=== PATIENT | male | born 1935 | race Caucasian/White ===

== ENCOUNTER → 2017-10-19 | Outpatient (CLI) | payer MEDICARE ==
[~2017-10-19] MED LIST: PROHANCE 279.3MG/ML 5ML VIAL (A9576) As Ordered
== END ==
LOC: M RAD 08:33
DX: R97.20 Elevated prostate specific antigen [PSA] (principal); K40.20 Bilateral inguinal hernia, without obstruction or gangrene, not specified as recurrent; N42.89 Other specified disorders of prostate
CPT/HCPCS: A9576

== ENCOUNTER → 2018-01-05 | Outpatient (CLI) | payer MEDICARE | LOC: M SMT PRO 09:17 | DX: R97.20 Elevated prostate specific antigen [PSA] (principal); C61 Malignant neoplasm of prostate (principal) | CPT/HCPCS: G0416 ==

== ENCOUNTER → 2018-01-28 | Outpatient (CLI) | payer MEDICARE | LOC: M ONCR 13:13 | DX: C61 Malignant neoplasm of prostate (principal) | CPT/HCPCS: G0463 ==

== ENCOUNTER → 2018-02-09 | Outpatient (CLI) | payer MEDICARE | LOC: M SMT 09:35 | DX: C61 Malignant neoplasm of prostate (principal) | CPT/HCPCS: 55876; 76872 ==

== ENCOUNTER 2018-02-23 09:25 | Outpatient (RCR) | payer MEDICARE | END 2018-03-13 | LOC: M ONCR 09:25 | DX: C61 Malignant neoplasm of prostate (principal) | CPT/HCPCS: 77334 ==

== ENCOUNTER 2018-03-15 10:05 | Outpatient (RCR) | payer MEDICARE | END 2018-04-13 | LOC: M ONCR 10:05 | DX: C61 Malignant neoplasm of prostate (principal) | CPT/HCPCS: 77300 ==

== ENCOUNTER 2018-04-14 09:32 | Outpatient (RCR) | payer MEDICARE | END 2018-05-14 | LOC: M ONCR 09:32 | DX: C61 Malignant neoplasm of prostate (principal) | CPT/HCPCS: 77336 ==

== ENCOUNTER 2018-05-18 13:01 | Outpatient (RCR) | payer MEDICARE | END 2018-06-13 | LOC: M ONCR 13:01 | DX: C61 Malignant neoplasm of prostate (principal) | CPT/HCPCS: 77386 ==

== ENCOUNTER → 2018-06-10 | Outpatient (CLI) | payer MEDICARE ==
[2018-06-10 12:31] LABS: PROSTATIC SPECIFIC AG MONITOR 0.02 NG/ML (< 4.0)
== END ==
LOC: M LAB 10:50
DX: C61 Malignant neoplasm of prostate (principal)
CPT/HCPCS: 84153

== ENCOUNTER → 2018-06-16 | Outpatient (CLI) | payer MEDICARE | LOC: M ONCR 10:11 | DX: C61 Malignant neoplasm of prostate (principal) | CPT/HCPCS: G0463 ==

== ENCOUNTER → 2018-12-15 | Outpatient (CLI) | payer MEDICARE ==
--- NOTE | 2018-12-15 16:17 | RADONC ---
RADIATION ONCOLOGY FOLLOWUP NOTE DATE: 12/15/2018 CHART NUMBER: [id number] DIAGNOSIS: Prostate cancer. STAGE: Stage III A, T2c, N0, M0, Helen score 7 (4-3), grade group 3, PSA 26.52. ECOG PERFORMANCE STATUS: 0 FOLLOWUP NOTE: Mr. Roach is a very pleasant, 83-year-old white male with the diagnosis of prostatic adenocarcinoma who is presenting to us today for routine followup visit 7 months post completion of external beam radiation therapy. The patient presents today reporting that he is doing quite well with no complaints at this time related to his radiation therapy or disease. He has no urinary or bowel difficulties. No bone pain. REVIEW OF SYSTEMS: The patient's review of systems is positive for physical limitations secondary to old age but is otherwise noncontributory. Denies nausea, vomiting, fevers, chills, night sweats, diplopia, headaches, anxiety or depression, anorexia, weight loss, visual disturbances, chest pain, urinary or bowel difficulties, bone pain, or neurological problems. PHYSICAL EXAMINATION: The patient is a well-developed, well-nourished male in no acute distress. HEENT exam is normocephalic, atraumatic. Extraocular movements are intact. There is no palpable cervical, supraclavicular, infraclavicular, axillary, or inguinal lymphadenopathy present. Lungs are clear to auscultation and percussion. Heart has a regular rate and rhythm. Abdomen is benign with no hepatosplenomegaly, masses, or tenderness. Rectal examination reveals a normal anal sphincter tone. His prostate is smooth with no evidence of nodularity. Skeletal examination reveals no tenderness to pressure or percussion of the bony skeleton. Extremities reveal no clubbing, cyanosis, or edema. Neurologic exam is grossly intact, as is the remainder of the physical examination. ASSESSMENT: The patient is clinically LEELEE at this time and will be seen by us again in 6 months for further followup. He will also continue be followed by his other physicians as well. cc: MD James Maddox MD
== END ==
LOC: M ONCR 09:36
PROVIDERS: ATTEND Radiology Radiation Oncology
DX: Z08 Encounter for follow-up examination after completed treatment for malignant neoplasm (principal); Z92.3 Personal history of irradiation; Z85.46 Personal history of malignant neoplasm of prostate

== ENCOUNTER 2019-07-05 13:33 | Inpatient (IN) | payer MEDICARE ==
[~2019-07-05] VITALS: Ht 177.8 cm; Wt 81.0 kg
[2019-07-05] MEDS ORDERED: METF-839 PO (14:07)
[2019-07-05] MEDS ORDERED: ALLO100T PO (14:07)
[2019-07-05] MEDS ORDERED: OMEGCAP4 PO (14:07)
[2019-07-05] MEDS ORDERED: LEVO137T2 PO (14:07)
[2019-07-05] MEDS ORDERED: ASPI81TA85 PO (14:07)
[2019-07-05] MEDS ORDERED: ATEN100T PO (14:07)
[2019-07-05] MEDS ORDERED: AMLO25TA PO (14:28)
[2019-07-05] MEDS ORDERED: PANT40TA3 PO (14:28)
[2019-07-05] MEDS ORDERED: JANU100T PO (14:28)
[2019-07-05] MEDS ORDERED: STAR120T3 PO (14:28)
[2019-07-05] MEDS ORDERED: SLO-500T PO (14:28)
[2019-07-05] MEDS ORDERED: SIMV40TA2 PO (14:28)
[2019-07-05] MEDS ORDERED: GLIM2TAB2 PO (14:28)
[2019-07-05] MEDS ORDERED: CALC600T60 PO (14:51)
[2019-07-05] MEDS ORDERED: REFR0.5D8 OU (14:51)
[2019-07-05 14:53] LABS: BASO % 0.3 % (0.0-1.0); EOS # 0.1 10^3/uL (0.0-0.5); EOS % 0.9 % (0.0-3.0); HEMATOCRIT 34.4 % (42.0-52.0); HEMOGLOBIN 11.5 g/dl (13.5-17.5); LYMPH # 1.4 10^3/uL (1.5-5.0); LYMPH % 13.4 % (24.0-44.0); MEAN CORPUSCULAR HEMOGLOBIN 32.5 pg (27.0-33.0); MEAN CORPUSCULAR HGB CONC 33.4 g/dl (32.0-36.5); MEAN CORPUSCULAR VOLUME 97.2 fl (80.0-96.0); MONO # 0.9 10^3/uL (0.0-0.8); MONO % 8.4 % (0.0-5.0); NEUTROPHILS # 8.1 10^3/uL (1.5-8.5); NEUTROPHILS % 76.5 % (36.0-66.0); PLATELET COUNT, AUTOMATED 204 10^3/uL (150-450); RED BLOOD COUNT 3.54 10^6/uL (4.30-6.10); WHITE BLOOD COUNT 10.5 10^3/uL (4.0-10.0)
[2019-07-05 15:18] LABS: ALBUMIN 3.5 GM/DL (3.2-5.2); BILIRUBIN,DIRECT 0.1 MG/DL (0.0-0.2); BILIRUBIN,TOTAL 0.4 MG/DL (0.2-1.0); CALCIUM LEVEL 9.9 MG/DL (8.8-10.2); CREATININE FOR GFR 1.69 MG/DL (0.70-1.30); GLOMERULAR FILTRATION RATE 41.5 (>35); POTASSIUM SERUM 4.1 MEQ/L (3.5-5.1); TOTAL PROTEIN 6.5 GM/DL (6.4-8.2)
--- NOTE | 2019-07-05 15:54 | REP ---
Single view chest: 07/05/2019. Indication: Chest pain. Comparison: 05/11/2009. Findings: The lungs are clear. There is no pleural effusion or pneumothorax. The cardiac silhouette is unremarkable. Proximal right humeral fracture is present. Please see dedicated reports for details. Impression: Clear lungs. Electronically Signed by Troy Johnson DO 07/05/2019 03:45 P
--- NOTE | 2019-07-05 16:01 | REP ---
Five views right shoulder/humerus: 07/05/2019. Indication: Shoulder trauma. Comparison: None. Findings: Comminuted displaced proximal right humeral fracture is present without shoulder joint subluxation/dislocation. The osseous structures are diffusely osteopenic. No erosive lesions are detected. Impression: Comminuted displaced proximal right humeral fracture. Electronically Signed by Troy Johnson DO 07/05/2019 03:53 P
--- NOTE | 2019-07-05 16:04 | REP ---
Please see report for accession number [id number] - [id number] as the reports were dictated together. Electronically Signed by Troy Johnson DO 07/05/2019 03:55 P
--- NOTE | 2019-07-05 16:56 | HPEPDOC ---
[facility] Medical History & Physical Date of Admission Jul 05, 2019 Date of Service: Jul 05, 2019 History and Physical CHIEF COMPLAINT: R. shoulder pain HISTORY OF PRESENT ILLNESS: Patient is 83M with PMH HTN, DM, Anxiety/Depression, Hypothyroidism, gout brought in by son into the ER as patient have not been able to ambulate at home due to weakness as well as R. shoulder pain. He reportedly has been week for weeks now and has been wheelchair bound and unable to take care of himself. His has been his primary skein bleacher but recently was hospitalized and he has been home alone without ability to move around and care for himself. He stated that he has had a fall about one month prior that resulted in pain and possible fracture and has been using a R. shoulder sling. Had went to [facility] multiple times. He current reports only weakness worse in his lower extremities and pain in the R. shoulder but otherwise offered no other complaints. PAST MEDICAL HISTORY: Refer to [facility] PAST SURGICAL HISTORY: Cholelcystectomy SOCIAL HISTORY: Denies tobacco, alcohol or illicit drug use. FAMILY HISTORY: parents had DM ALLERGIES: Please see below. REVIEW OF SYSTEMS: 10 point review of system negative except as stated in [facility] HOME MEDICATIONS: Please see below. PHYSICAL EXAMINATION: General: No acute distress, Alert, old/frail Eyes: Normal sclera, EOMI, DUSTY HENT: Atraumatic Cardiovascular: Normal rate, normal rhythm. Pulmonary: Clear to auscultation b/l, no wheezing GI: Soft, nontender, nondistended MSK: R. shoulder pain with reduced ROM 2/2 tenderness. Skin: Warm and dry Neuro: CN grossly intact. b/l LE weakness 2/5. Psych: oriented x 3 LABORATORY DATA: See below. IMAGING: XR R. shoulder and humerus- Findings: Comminuted displaced proximal right humeral fracture is present without shoulder joint subluxation/dislocation. The osseous structures are diffusely osteopenic. No erosive lesions are detected. Impression: Comminuted displaced proximal right humeral fracture. MICROBIOLOGY: Please see below. ASSESSMENT AND PLAN: 1. R. humeral fracture - Noted on XR. Has a sling in place, unsure why he hasn't had any intervention. - Will consult ortho for evaluation. - Pain control. 2. DM - Hold home oral glycemic agents. - ISS and Levemir. Monitor BS. 3. HTN - c/w home medications. 4. Hypothyroid - Resume home dose synthroid. 5. Physical debility - Chronic with progressive worsening. - Unable to get up for ambulate and self care. - PT/OT consult. Will likely require Rehab placement. Code status: Full code Dispo: PT eval and treatment, likely Rehab placement. Patient cared for by but is alone at the moment. Vital Signs Vital Signs Date Time Temp Pulse Resp B/P (MAP) Pulse Ox O2 Delivery O2 Flow Rate FiO2 07/05/19 16:18 81 97 Room Air 07/05/19 16:00 128/72 (90) 07/05/19 13:47 97.6 18 Laboratory Data Labs 24H Laboratory Tests 2 07/05/19 14:46: Immature Granulocyte % (Auto) 0.5, Neutrophils (%) (Auto) 76.5H, Lymphocytes (%) (Auto) 13.4L, Monocytes (%) (Auto) 8.4H, Eosinophils (%) (Auto) 0.9, Basophils (%) (Auto) 0.3, Neutrophils # (Auto) 8.1, Lymphocytes # (Auto) 1.4L, Monocytes # (Auto) 0.9H, Eosinophils # (Auto) 0.1, Basophils # (Auto) 0.0, Nucleated Red Blood Cells % (auto) 0.0, POC Glucose (Misc Panel) 197H, POC Sodium (Misc Panel) 138, POC Potassium (Misc Panel) 4.0, POC Chloride (Misc Panel) 105, POC Total CO2 (Misc Panel) 22.0L, POC Blood Urea Nitrogen (Misc Panel 36H, POC Ionized Calcium (Misc Panel) 5.2, POC Creatinine (Misc Panel) 1.8H, POC Hematocrit (Misc Panel) 32.0L, Anion Gap 8, Glomerular Filtration Rate 41.5, Calcium Level 9.9, Total Bilirubin 0.4, Direct Bilirubin 0.1, Aspartate Amino Transf (AST/SGOT) 13, Alanine Aminotransferase (ALT/SGPT) 18, Alkaline Phosphatase 92, Total Protein 6.5, Albumin 3.5, Albumin/Globulin Ratio 1.17 CBC/BMP Laboratory Tests 07/05/19 14:46 Home Medications Scheduled Allopurinol (Allopurinol) 100 Mg Tablet, 100 MG PO DAILY Amlodipine Besylate (Amlodipine Besylate) 2.5 Mg Tablet, 5 MG PO DAILY Aspirin (Aspir 81) 81 Mg Tablet.dr, 81 MG PO DAILY Atenolol (Atenolol) 100 Mg Tablet, 100 MG PO DAILY Calcium Carbonate (Calcium) 600 Mg Tablet, 600 MG PO DAILY Glimepiride (Glimepiride) 2 Mg Tablet, 2 MG PO BID Levothyroxine Sodium (Levothyroxine Sodium) 137 Mcg Tablet, 137 MCG PO DAILY Metformin HCl (Metformin HCl) 500 Mg Tablet, 500 MG PO BID Niacin (Slo-Niacin) 500 Mg Tablet.er, 500 MG PO DAILY Simvastatin (Simvastatin) 40 Mg Tablet, 40 MG PO DAILY Sitagliptin Phosphate (Januvia) 100 Mg Tablet, 100 MG PO DAILY Scheduled PRN Carboxymethylcellulose Sodium (Refresh Tears) 15 Ml Drops, 1 DROP OU TID PRN for DRY EYES Allergies Coded Allergies: No Known Allergies (Unverified , 07/05/19) A-FIB/CHADSVASC A-FIB History Current/History of A-Fib/PAF?: No ERIN BRADY MD Jul 05, 2019 16:56
[2019-07-05] MEDS ORDERED: DEXTROSE 50% 50 ML SYRINGE IV PRN (17:00)
[2019-07-05] MEDS ORDERED: GLUCAGON FOR INJ 1 MG VIAL (J1610) SC PRN (17:00)
[2019-07-05] MEDS ORDERED: GLUCOSE 4 GM CHEW TABLET PO PRN (17:00)
[2019-07-05] MEDS: HumaLOG INSULIN (NovoLOG) PER UNIT SC SCH ×2 (17:30→21:00)
[2019-07-05 19:06] VITALS: BP 147/77
[2019-07-05] MEDS ORDERED: LEVEMIR (INSULIN DETEMIR) 1 UNITS/0.01ML SC ONE (21:00)
[2019-07-05 22:00] VITALS: BP 143/78
[2019-07-06 05:27] VITALS: BP 160/76
[2019-07-06] MEDS: LEVOTHYROXINE 137MCG TABLET (0.137MG) PO SCH (06:20)
[2019-07-06] MEDS: HumaLOG INSULIN (NovoLOG) PER UNIT SC SCH ×4 (07:30→21:00)
[2019-07-06] MEDS ORDERED: GLIMEPIRIDE 2 MG TAB PO SCH (07:30)
[2019-07-06] MEDS ORDERED: metFORMIN (GLUCOPHAGE) 500 MG TAB PO SCH (08:00)
[2019-07-06] MEDS: ALLOPURINOL 100 MG TAB PO SCH (08:14)
[2019-07-06] MEDS: SIMVASTATIN 40 MG TAB PO SCH (08:14)
[2019-07-06] MEDS: ASPIRIN 81 MG ENTERIC TAB PO SCH (08:14)
[2019-07-06] MEDS: ATENOLOL 50 MG TAB PO SCH (08:17)
[2019-07-06 08:19] VITALS: BP 171/92
[2019-07-06] MEDS: ENOXAPARIN 30 MG/0.3 ML SYR (J1650) SC SCH (08:20)
[2019-07-06] MEDS: amLODIPine 5 MG TAB PO SCH (08:20)
[2019-07-06] MEDS ORDERED: SITagliptin 50 MG TAB (JANUVIA) PO SCH (09:00)
--- NOTE | 2019-07-06 12:34 | CR ---
DATE OF CONSULTATION: 07/06/2019 CONSULTATION FOR: Dr. Silva CHIEF COMPLAINT: Right shoulder pain. HISTORY: This is an 83-year-old gentleman who was brought to the emergency room yesterday with difficulty ambulating and right shoulder pain. Apparently, he has gotten somewhat progressively weaker. His had been his primary caregiver but was recently hospitalized. He did have a fall that he estimates was around 06/16/2019 into a wall that resulted in a right proximal humerus fracture. He was seen at [facility] apparently a couple of times, had an x-ray obtained. Denies having seen any orthopedic surgeon so far. He has been a sling, and he has been getting more comfortable with it but does have some discomfort. He had a significant amount of bruising, he relates, but that is resolved. PAST MEDICAL HISTORY: Is notable for hypothyroidism, depression, anxiety, hypertension, diabetes, gout. PAST SURGICAL HISTORY: Includes cholecystectomy. SOCIAL HISTORY: Denies any tobacco or alcohol use currently. FAMILY HISTORY: Notable for diabetes. PHYSICAL EXAMINATION: He is alert, oriented, cooperative, no acute distress. HEENT: Extraocular muscles intact. He has a benign pharynx. He has regular rate and rhythm to his pulse. Nonlabored breathing. Benign abdomen. His right shoulder demonstrates some diffuse tenderness. There is some perhaps very mild swelling of his shoulder. He has irritability to range of motion of the shoulder with flexion and forward elevation of about 20 degrees or so, abduction about 10 degrees. His elbow range of motion seems full. He has good pulses distally and intact sensation distally. Radiographs reviewed of his right humerus and shoulder done yesterday here, and they demonstrate a proximal humerus fracture. There is some degree of displacement. Probably some early signs of healing. There is no evidence of obvious dislocation, and it was interpreted as having no dislocation. He has evidence of rotator cuff arthropathy with a high riding humeral head. Overall position alignment of the fracture, I think, is very acceptable. IMPRESSION: Right proximal humerus fracture with some signs of early healing. RECOMMENDATION: Sling. He can work on range of motion of his elbow. I would recommend nonweightbearing on his right upper extremity and would recommend followup in 2 weeks in the orthopedic office. He should get an updated x-ray at that point. If there are any issues in the meantime, please contact us.
[2019-07-06] MEDS: PERCOCET 5MG/325MG TAB PO PRN (13:36)
[2019-07-06 14:00] VITALS: BP_SYST 112; BP_SYST 147; BP_DIAS 68; BP_DIAS 88
--- NOTE | 2019-07-06 17:24 | IPNPDOC ---
Date Seen The patient was seen on 07/06/19. Progress Note SUBJECTIVE: Patient reported intermittent R. shoulder pain but otherwise no changes in condition. Afebrile overnight. No acute events reported. OBJECTIVE PHYSICAL EXAMINATION: VITAL SIGNS: Please see below. General: No acute distress, Alert Eyes: Normal sclera, EOMI, DUSTY HENT: Atraumatic Cardiovascular: Normal rate, normal rhythm. Pulmonary: Clear to auscultation b/l, no wheezing GI: Soft, nontender, nondistended MSK: R. shoulder pain with reduced ROM 2/2 tenderness. Skin: Warm and dry Neuro: CN grossly intact. b/l LE weakness 2/5. Psych: oriented x 3 LABORATORY DATA, IMAGING STUDIES, MICROBIOLOGY: Please see below. IMAGING: XR R. shoulder and humerus- Findings: Comminuted displaced proximal right humeral fracture is present without shoulder joint subluxation/dislocation. The osseous structures are diffusely osteopenic. No erosive lesions are detected. Impression: Comminuted displaced proximal right humeral fracture. MICROBIOLOGY: Please see below. ASSESSMENT AND PLAN: 1. R. humeral fracture - Noted on XR. Has a sling in place. - Evaluated by ortho. to continue sling and f/u in 2 weeks. - Pain control. 2. DM - Hold home oral glycemic agents. - ISS. Monitor BS. Start Levemir if consistently elevated, was given 10 units previously with AM BS at 80. 3. HTN - c/w home medications. 4. Hypothyroid - Resume home dose synthroid. 5. Physical debility - Chronic with progressive worsening. - Unable to get up for ambulate and self care. - PT/OT consult. Will likely require Rehab placement. Code status: Full code Dispo: PT eval and treatment, likely Rehab placement. Patient cared for by but is alone at the moment. VS, I&O, 24H, Fishbone Vital Signs/I&O Vital Signs Date Time Temp Pulse Resp B/P (MAP) Pulse Ox O2 Delivery O2 Flow Rate FiO2 07/06/19 14:00 97.6 76 19 147/88 (107) 93 Room Air I&O- Last 24 Hours up to 6 AM 07/06/19 05:59 Intake Total 350 ml Output Total 300 ml Balance 50 ml Laboratory Data 24H LABS Laboratory Tests 2 07/05/19 20:45: Bedside Glucose (Misc Panel) 152H 07/06/19 06:00: Bedside Glucose (Misc Panel) 84 07/06/19 11:35: Bedside Glucose (Misc Panel) 219H ERIN BRADY MD Jul 06, 2019 17:24
[2019-07-06 22:15] VITALS: BP 144/82
[2019-07-07 05:55] LABS: HEMATOCRIT 32.8 % (42.0-52.0); MEAN CORPUSCULAR HEMOGLOBIN 32.4 pg (27.0-33.0); MEAN CORPUSCULAR HGB CONC 33.5 g/dl (32.0-36.5); MEAN CORPUSCULAR VOLUME 96.5 fl (80.0-96.0); PLATELET COUNT, AUTOMATED 161 10^3/uL (150-450); WHITE BLOOD COUNT 7.4 10^3/uL (4.0-10.0)
[2019-07-07 06:13] LABS: CALCIUM LEVEL 9.3 MG/DL (8.8-10.2); CREATININE FOR GFR 1.43 MG/DL (0.70-1.30); GLOMERULAR FILTRATION RATE 50.3 (>35); POTASSIUM SERUM 3.9 MEQ/L (3.5-5.1)
[2019-07-07] MEDS: LEVOTHYROXINE 137MCG TABLET (0.137MG) PO SCH (06:30)
[2019-07-07] MEDS ORDERED: FLUBLOK(EGG FREE)(QUAD)INFLUENZA VACC 0.5ML SYRINGE (90682)18YRS&OLDER IM ONE (09:00)
[2019-07-07] MEDS: ALLOPURINOL 100 MG TAB PO SCH (09:40)
[2019-07-07] MEDS: SIMVASTATIN 40 MG TAB PO SCH (09:40)
[2019-07-07] MEDS: ASPIRIN 81 MG ENTERIC TAB PO SCH (09:40)
[2019-07-07] MEDS: ATENOLOL 50 MG TAB PO SCH (09:40)
[2019-07-07] MEDS: HumaLOG INSULIN (NovoLOG) PER UNIT SC SCH ×4 (09:41→20:12)
[2019-07-07] MEDS: amLODIPine 5 MG TAB PO SCH (09:41)
[2019-07-07] MEDS: ENOXAPARIN 30 MG/0.3 ML SYR (J1650) SC SCH (09:41)
[2019-07-07] MEDS: ACETAMINOPHEN TAB 650MG DOSE (2X325MG) PO PRN (13:00)
[2019-07-07 14:22] VITALS: BP 130/67
--- NOTE | 2019-07-07 17:42 | IPNPDOC ---
Date Seen The patient was seen on 07/07/19. Progress Note SUBJECTIVE: Patient reports feeling fine and has been working well with PT. No acute events reported. R. shoulder pain improve with analgesia. OBJECTIVE PHYSICAL EXAMINATION: VITAL SIGNS: Please see below. General: No acute distress, Alert Eyes: Normal sclera, EOMI, DUSTY HENT: Atraumatic Cardiovascular: Normal rate, normal rhythm. Pulmonary: Clear to auscultation b/l, no wheezing GI: Soft, nontender, nondistended MSK: R. shoulder pain with reduced ROM 2/2 tenderness. Skin: Warm and dry Neuro: CN grossly intact. b/l LE weakness 2/5. Psych: oriented x 3 LABORATORY DATA, IMAGING STUDIES, MICROBIOLOGY: Please see below. IMAGING: XR R. shoulder and humerus- Findings: Comminuted displaced proximal right humeral fracture is present without shoulder joint subluxation/dislocation. The osseous structures are diffusely osteopenic. No erosive lesions are detected. Impression: Comminuted displaced proximal right humeral fracture. MICROBIOLOGY: Please see below. ASSESSMENT AND PLAN: 1. R. humeral fracture - Noted on XR. Has a sling in place. - Evaluated by ortho. to continue sling and f/u in 2 weeks. - Pain control. 2. DM - Hold home oral glycemic agents. - ISS. Monitor BS. Start Levemir if consistently elevated, was given 10 units previously with AM BS at 80. - Appear that sliding scale coverage is enough at this time. 3. HTN - c/w home medications. 4. Hypothyroid - Resume home dose synthroid. 5. Physical debility - Chronic with progressive worsening. - Unable to get up for ambulate and self care. - PT/OT. Will likely require Rehab placement. Code status: Full code Dispo: PT eval and treatment, likely Rehab placement. VS, I&O, 24H, Fishbone Vital Signs/I&O Vital Signs Date Time Temp Pulse Resp B/P (MAP) Pulse Ox O2 Delivery O2 Flow Rate FiO2 07/07/19 14:22 97.1 58 20 130/67 (88) 97 Room Air I&O- Last 24 Hours up to 6 AM 07/07/19 06:00 Intake Total 1480 ml Output Total 0 ml Balance 1480 ml Laboratory Data 24H LABS Laboratory Tests 2 07/06/19 21:48: Bedside Glucose (Misc Panel) 186H 07/07/19 05:39: Nucleated Red Blood Cells % (auto) 0.0, Anion Gap 10, Glomerular Filtration Rate 50.3, Calcium Level 9.3 07/07/19 11:39: Bedside Glucose (Misc Panel) 173H 07/07/19 16:53: Bedside Glucose (Misc Panel) 123H CBC/BMP Laboratory Tests 07/07/19 05:39 ERIN BRADY MD Jul 07, 2019 17:42
[2019-07-07 22:00] VITALS: BP 133/63
[2019-07-07] MEDS: PERCOCET 5MG/325MG TAB PO PRN (22:33)
[2019-07-08 06:00] VITALS: BP 153/67
[2019-07-08] MEDS: LEVOTHYROXINE 137MCG TABLET (0.137MG) PO SCH (06:27)
[2019-07-08 06:37] LABS: HEMATOCRIT 31.7 % (42.0-52.0); HEMOGLOBIN 10.4 g/dl (13.5-17.5); MEAN CORPUSCULAR HEMOGLOBIN 31.8 pg (27.0-33.0); MEAN CORPUSCULAR HGB CONC 32.8 g/dl (32.0-36.5); MEAN CORPUSCULAR VOLUME 96.9 fl (80.0-96.0); PLATELET COUNT, AUTOMATED 178 10^3/uL (150-450); RED BLOOD COUNT 3.27 10^6/uL (4.30-6.10)
[2019-07-08] MEDS: PERCOCET 5MG/325MG TAB PO PRN ×2 (06:47→16:56)
[2019-07-08 06:58] LABS: CALCIUM LEVEL 9.4 MG/DL (8.8-10.2); CREATININE FOR GFR 1.48 MG/DL (0.70-1.30); GLOMERULAR FILTRATION RATE 48.3 (>35); POTASSIUM SERUM 4.2 MEQ/L (3.5-5.1)
[2019-07-08] MEDS: HumaLOG INSULIN (NovoLOG) PER UNIT SC SCH ×4 (07:30→20:53)
[2019-07-08] MEDS: ASPIRIN 81 MG ENTERIC TAB PO SCH (09:07)
[2019-07-08] MEDS: ATENOLOL 50 MG TAB PO SCH (09:08)
[2019-07-08] MEDS: SIMVASTATIN 40 MG TAB PO SCH (09:08)
[2019-07-08] MEDS: amLODIPine 5 MG TAB PO SCH (09:08)
[2019-07-08] MEDS: ALLOPURINOL 100 MG TAB PO SCH (09:08)
[2019-07-08] MEDS: ENOXAPARIN 30 MG/0.3 ML SYR (J1650) SC SCH (09:09)
[2019-07-08] MEDS: NS 1,000 ML IV SCH ×2 (09:09→17:13)
--- NOTE | 2019-07-08 13:28 | IPNPDOC ---
Date Seen The patient was seen on 07/08/19. Progress Note SUBJECTIVE: Patient has no complaints, comfortable. R. shoulder pain improved with medication. OBJECTIVE PHYSICAL EXAMINATION: VITAL SIGNS: Please see below. General: No acute distress, Alert Eyes: Normal sclera, EOMI, DUSTY HENT: Atraumatic Cardiovascular: Normal rate, normal rhythm. Pulmonary: Clear to auscultation b/l, no wheezing GI: Soft, nontender, nondistended MSK: R. shoulder pain with reduced ROM 2/2 tenderness. Skin: Warm and dry Neuro: CN grossly intact. b/l LE weakness 2/5. Psych: oriented x 3 LABORATORY DATA, IMAGING STUDIES, MICROBIOLOGY: Please see below. IMAGING: XR R. shoulder and humerus- Findings: Comminuted displaced proximal right humeral fracture is present without shoulder joint subluxation/dislocation. The osseous structures are diffusely osteopenic. No erosive lesions are detected. Impression: Comminuted displaced proximal right humeral fracture. MICROBIOLOGY: Please see below. ASSESSMENT AND PLAN: 1. R. humeral fracture - Noted on XR. Has a sling in place. - Evaluated by ortho. to continue sling and f/u in 2 weeks. - Pain control. 2. DM - Hold home oral glycemic agents. - ISS. Monitor BS. Start Levemir if consistently elevated, was given 10 units previously with AM BS at 80. - Appear that sliding scale coverage is enough at this time. 3. HTN - c/w home medications. 4. Hypothyroid - Resume home dose synthroid. 5. Physical debility - Chronic with progressive worsening. - Unable to get up for ambulate and self care. - PT/OT. Will require Rehab placement. Code status: Full code Dispo: PT eval and treatment, Rehab placement. [facility] Vital Signs Date Time Temp Pulse Resp B/P (MAP) Pulse Ox O2 Delivery O2 Flow Rate FiO2 07/08/19 09:08 57 153/67 07/08/19 07:17 18 Room Air 07/08/19 06:00 98.3 98 I&O- Last 24 Hours up to 6 AM 07/08/19 06:00 Intake Total 1380 ml Output Total 925 ml Balance 455 ml Laboratory Data 24H LABS Laboratory Tests 2 07/07/19 16:53: Bedside Glucose (Misc Panel) 123H 07/07/19 20:07: Bedside Glucose (Misc Panel) 188H 07/08/19 05:27: Nucleated Red Blood Cells % (auto) 0.0, Anion Gap 7L, Glomerular Filtration Rate 48.3, Calcium Level 9.4 07/08/19 12:47: Bedside Glucose (Misc Panel) 158H CBC/BMP Laboratory Tests 07/08/19 05:27 ERIN BRADY MD Jul 08, 2019 13:28
[2019-07-08 16:02] VITALS: BP 128/63
[2019-07-08 22:00] VITALS: BP 123/61
[2019-07-09] MEDS: PERCOCET 5MG/325MG TAB PO PRN ×3 (02:23→15:05)
[2019-07-09] MEDS: NS 1,000 ML IV SCH ×2 (04:00→14:57)
[2019-07-09] MEDS: LEVOTHYROXINE 137MCG TABLET (0.137MG) PO SCH (05:35)
[2019-07-09 06:00] VITALS: BP 162/74
[2019-07-09 07:02] LABS: HEMATOCRIT 31.8 % (42.0-52.0); HEMOGLOBIN 10.4 g/dl (13.5-17.5); MEAN CORPUSCULAR HEMOGLOBIN 32.1 pg (27.0-33.0); MEAN CORPUSCULAR HGB CONC 32.7 g/dl (32.0-36.5); MEAN CORPUSCULAR VOLUME 98.1 fl (80.0-96.0); PLATELET COUNT, AUTOMATED 176 10^3/uL (150-450); RED BLOOD COUNT 3.24 10^6/uL (4.30-6.10); WHITE BLOOD COUNT 7.9 10^3/uL (4.0-10.0)
[2019-07-09 07:11] LABS: CALCIUM LEVEL 8.7 MG/DL (8.8-10.2); CREATININE FOR GFR 1.38 MG/DL (0.70-1.30); GLOMERULAR FILTRATION RATE 52.4 (>35); POTASSIUM SERUM 4.1 MEQ/L (3.5-5.1)
[2019-07-09] MEDS: SIMVASTATIN 40 MG TAB PO SCH (08:36)
[2019-07-09] MEDS: ATENOLOL 50 MG TAB PO SCH (08:37)
[2019-07-09] MEDS: amLODIPine 5 MG TAB PO SCH (08:37)
[2019-07-09] MEDS: ASPIRIN 81 MG ENTERIC TAB PO SCH (08:37)
[2019-07-09] MEDS: ALLOPURINOL 100 MG TAB PO SCH (08:37)
[2019-07-09] MEDS: HumaLOG INSULIN (NovoLOG) PER UNIT SC SCH ×4 (08:38→20:27)
[2019-07-09] MEDS: ENOXAPARIN 30 MG/0.3 ML SYR (J1650) SC SCH (08:38)
--- NOTE | 2019-07-09 12:18 | IPNPDOC ---
Date Seen The patient was seen on 07/09/19. Progress Note SUBJECTIVE: Patient states that his shoulder has not been hurting very much as has no co mplailnts. No acute events reported overnight. OBJECTIVE PHYSICAL EXAMINATION: VITAL SIGNS: Please see below. General: No acute distress, Alert Eyes: Normal sclera, EOMI, DUSTY HENT: Atraumatic Cardiovascular: Normal rate, normal rhythm. Pulmonary: Clear to auscultation b/l, no wheezing GI: Soft, nontender, nondistended MSK: R. shoulder pain with movement. Reduced ROM 2/2 tenderness. Skin: Warm and dry Neuro: CN grossly intact. b/l LE weakness 2/5. Psych: oriented x 3 LABORATORY DATA, IMAGING STUDIES, MICROBIOLOGY: Please see below. IMAGING: XR R. shoulder and humerus- Findings: Comminuted displaced proximal right humeral fracture is present without shoulder joint subluxation/dislocation. The osseous structures are diffusely osteopenic. No erosive lesions are detected. Impression: Comminuted displaced proximal right humeral fracture. MICROBIOLOGY: Please see below. ASSESSMENT AND PLAN: 1. R. humeral fracture - Noted on XR. Has a sling in place. - Evaluated by ortho. to continue sling and f/u in 2 weeks. - Pain control. 2. DM - Hold home oral glycemic agents. - ISS. Monitor BS. Start Levemir if consistently elevated, was given 10 units previously with AM BS at 80. - Appear that sliding scale coverage is enough at this time. 3. HTN - c/w home medications. 4. Hypothyroid - Resume home dose synthroid. 5. Physical debility - Chronic with progressive worsening. - Unable to get up for ambulate and self care. - PT/OT. Will require Rehab placement. Code status: Full code Dispo: PT eval and treatment, Rehab placement. VS, I&O, 24H, Fishbone Vital Signs/I&O Vital Signs Date Time Temp Pulse Resp B/P (MAP) Pulse Ox O2 Delivery O2 Flow Rate FiO2 07/09/19 08:37 18 07/09/19 08:37 69 162/74 07/09/19 06:00 99.1 97 Room Air I&O- Last 24 Hours up to 6 AM 07/09/19 06:00 Intake Total 2400 ml Output Total 1230 ml Balance 1170 ml Laboratory Data 24H LABS Laboratory Tests 2 07/08/19 12:47: Bedside Glucose (Misc Panel) 158H 07/08/19 16:57: Bedside Glucose (Misc Panel) 137H 07/08/19 20:16: Bedside Glucose (Misc Panel) 175H 07/09/19 06:10: Nucleated Red Blood Cells % (auto) 0.0, Anion Gap 9, Glomerular Filtration Rate 52.4, Calcium Level 8.7L 07/09/19 12:12: Bedside Glucose (Misc Panel) 85 CBC/BMP Laboratory Tests 07/09/19 06:10 ERIN BRADY MD Jul 09, 2019 12:18
[2019-07-09 14:00] VITALS: BP 155/75
[2019-07-09] MEDS: ACETAMINOPHEN TAB 650MG DOSE (2X325MG) PO PRN (22:47)
[2019-07-10] MEDS: NS 1,000 ML IV SCH ×2 (00:06→08:29)
[2019-07-10] MEDS: PERCOCET 5MG/325MG TAB PO PRN ×4 (02:22→22:33)
[2019-07-10 06:00] VITALS: BP 147/48
[2019-07-10] MEDS: LEVOTHYROXINE 137MCG TABLET (0.137MG) PO SCH (06:07)
[2019-07-10 06:39] LABS: HEMATOCRIT 32.1 % (42.0-52.0); HEMOGLOBIN 10.6 g/dl (13.5-17.5); MEAN CORPUSCULAR HEMOGLOBIN 31.9 pg (27.0-33.0); MEAN CORPUSCULAR VOLUME 96.7 fl (80.0-96.0); PLATELET COUNT, AUTOMATED 181 10^3/uL (150-450); RED BLOOD COUNT 3.32 10^6/uL (4.30-6.10); WHITE BLOOD COUNT 7.9 10^3/uL (4.0-10.0)
[2019-07-10 06:53] LABS: CALCIUM LEVEL 9.2 MG/DL (8.8-10.2); CREATININE FOR GFR 1.25 MG/DL (0.70-1.30); GLOMERULAR FILTRATION RATE 58.7 (>35)
[2019-07-10] MEDS: ATENOLOL 50 MG TAB PO SCH (08:27)
[2019-07-10] MEDS: ALLOPURINOL 100 MG TAB PO SCH (08:27)
[2019-07-10] MEDS: ASPIRIN 81 MG ENTERIC TAB PO SCH (08:28)
[2019-07-10] MEDS: SIMVASTATIN 40 MG TAB PO SCH (08:28)
[2019-07-10] MEDS: amLODIPine 5 MG TAB PO SCH (08:28)
[2019-07-10] MEDS: ENOXAPARIN 30 MG/0.3 ML SYR (J1650) SC SCH (08:29)
[2019-07-10] MEDS: HumaLOG INSULIN (NovoLOG) PER UNIT SC SCH ×4 (08:33→20:45)
[2019-07-10] MEDS: ACETAMINOPHEN TAB 650MG DOSE (2X325MG) PO PRN (13:29)
[2019-07-10 14:00] VITALS: BP 128/74
--- NOTE | 2019-07-10 14:02 | IPNPDOC ---
Date Seen The patient was seen on 07/10/19. Progress Note SUBJECTIVE: 83-year-old male with past medical history of diabetes, hypertension, hypothyroidism, admitted for right humeral fracture. Patient underwent a mechanical fall a couple months ago with injury to his shoulder, found to have a comminuted right humerus fracture, evaluated by orthopedic surgery who recommends sling and outpatient follow-up in a couple weeks. Patient was evaluated by physical therapy who recommended rehabilitation placement as patient is cared for by his at home who herself is currently admitted for a ruptured appendix and is also scheduled to have a AAA surgery in the near future. Patient currently comfortable in bed, denies any complaints apart from mild shoulder pain, denies any shortness of breath, chest pain, nausea, vomiting, abdominal pain or diarrhea. 10 point review of system was negative except for above PHYSICAL EXAMINATION: VITAL SIGNS: Please see below. GENERAL: No distress HEENT: Normocephalic, atraumatic, moist mucous membranes NECK: Supple CARDIOVASCULAR EXAMINATION: S1, S2, no murmurs RESPIRATORY EXAMINATION: Clear to auscultation, no wheezing ABDOMINAL EXAMINATION: Soft, nontender, nondistended, positive bowel sounds EXTREMITIES: Right arm range of motion limited due to pain and fracture SKIN: No rash NEUROLOGICAL EXAMINATION: Alert and oriented 3, no focal deficits PSYCHIATRIC EXAMINATION: Calm and cooperative LABORATORY DATA, IMAGING STUDIES, MICROBIOLOGY: Please see below. DVT prophylaxis ordered?: Yes ASSESSMENT AND PLAN: 83-year-old male with history of diabetes, hypertension, hypothyroidism, admitted for physical deconditioning and right humerus fracture. PROBLEMS: 1. Right humerus fracture: By orthopedics, continue sling, outpatient follow-up in 2 weeks. 2. Physical deconditioning:. Evaluated by physical therapy, recommend rehabilitation, social services analyst to arrange. Patient usually cared for by who herself is hospitalized at this time. 3. Diabetes mellitus: Sliding scale insulin with fingersticks before every meal and at bedtime. 4. Hypertension: Continue home atenolol and Norvasc. 5. Hyperlipidemia: Continue simvastatin. 6. Hypothyroidism: Continue levothyroxine. DVT prophylaxis: Lovenox. GI prophylaxis: Not needed VS, I&O, 24H, Fishbone Vital Signs/I&O Vital Signs Date Time Temp Pulse Resp B/P (MAP) Pulse Ox O2 Delivery O2 Flow Rate FiO2 07/10/19 09:00 18 Room Air 07/10/19 08:28 71 147/48 07/10/19 06:00 98.9 98 I&O- Last 24 Hours up to 6 AM 07/10/19 06:00 Intake Total 1925 ml Output Total 1580 ml Balance 345 ml Laboratory Data 24H LABS Laboratory Tests 2 07/09/19 16:46: Bedside Glucose (Misc Panel) 138H 07/09/19 20:23: Bedside Glucose (Misc Panel) 195H 07/10/19 06:22: Nucleated Red Blood Cells % (auto) 0.0, Anion Gap 5L, Glomerular Filtration Rate 58.7, Calcium Level 9.2 07/10/19 13:11: Bedside Glucose (Misc Panel) 122H CBC/BMP Laboratory Tests 07/10/19 06:22 IRWIN MCQUEEN MD Jul 10, 2019 14:02
[2019-07-10 21:13] VITALS: BP 119/67
[2019-07-11] MEDS: PERCOCET 5MG/325MG TAB PO PRN ×3 (04:50→18:05)
[2019-07-11 05:12] VITALS: BP 136/65
[2019-07-11] MEDS: LEVOTHYROXINE 137MCG TABLET (0.137MG) PO SCH (05:15)
[2019-07-11 06:29] LABS: HEMATOCRIT 28.8 % (42.0-52.0); HEMOGLOBIN 9.7 g/dl (13.5-17.5); MEAN CORPUSCULAR HEMOGLOBIN 32.7 pg (27.0-33.0); MEAN CORPUSCULAR HGB CONC 33.7 g/dl (32.0-36.5); PLATELET COUNT, AUTOMATED 137 10^3/uL (150-450); RED BLOOD COUNT 2.97 10^6/uL (4.30-6.10); WHITE BLOOD COUNT 5.2 10^3/uL (4.0-10.0)
[2019-07-11 06:51] LABS: BLOOD UREA NITROGEN 19 MG/DL (7-18); CARBON DIOXIDE LEVEL 24 MEQ/L (21-32); CHLORIDE LEVEL 112 MEQ/L (98-107); CREATININE FOR GFR 1.19 MG/DL (0.70-1.30); GLOMERULAR FILTRATION RATE > 60.0 (>35); GLUCOSE, FASTING 140 MG/DL (70-100); MAGNESIUM LEVEL 1.3 MG/DL (1.8-2.4); PHOSPHORUS LEVEL 2.7 MG/DL (2.5-4.9); POTASSIUM SERUM 3.8 MEQ/L (3.5-5.1); SODIUM LEVEL 141 MEQ/L (136-145)
[2019-07-11] MEDS: ATENOLOL 50 MG TAB PO SCH (08:29)
[2019-07-11] MEDS: ENOXAPARIN 30 MG/0.3 ML SYR (J1650) SC SCH (08:29)
[2019-07-11] MEDS: HumaLOG INSULIN (NovoLOG) PER UNIT SC SCH ×4 (08:29→20:53)
[2019-07-11] MEDS: ASPIRIN 81 MG ENTERIC TAB PO SCH (08:29)
[2019-07-11] MEDS: amLODIPine 5 MG TAB PO SCH (08:30)
[2019-07-11] MEDS: ALLOPURINOL 100 MG TAB PO SCH (08:30)
[2019-07-11] MEDS: SIMVASTATIN 40 MG TAB PO SCH (08:30)
[2019-07-11] MEDS ORDERED: POTASSIUM CHLORIDE 10 MEQ SR TABLET PO ONE (08:30)
[2019-07-11] MEDS: MAG SULF 1GM/100ML (MAG RUN) 1 GM in IV 1 EA IV SCH ×4 (09:03→11:52)
[2019-07-11 14:00] VITALS: BP 133/65
--- NOTE | 2019-07-11 14:04 | IPNPDOC ---
Date Seen The patient was seen on 07/11/19. Progress Note SUBJECTIVE: 83-year-old male with past medical history of diabetes, hypertension, hypothyroidism, admitted for right humeral fracture. Patient underwent a mechanical fall a couple months ago with injury to his shoulder, found to have a comminuted right humerus fracture, evaluated by orthopedic surgery who recommends sling and outpatient follow-up in a couple weeks. Patient was evaluated by physical therapy who recommended rehabilitation placement as patient is cared for by his at home who herself is currently admitted for a ruptured appendix and is also scheduled to have a AAA surgery in the near future. Patient currently comfortable in bed, denies any complaints apart from mild shoulder pain, denies any shortness of breath, chest pain, nausea, vomiting, abdominal pain or diarrhea. 07/11/2019 Patient without any new complaints, tolerating diet, denies any short of breath, chest pain, vomiting, abdominal pain, diarrhea. 10 point review of system was negative except for above PHYSICAL EXAMINATION: VITAL SIGNS: Please see below. GENERAL: No distress HEENT: Normocephalic, atraumatic, moist mucous membranes NECK: Supple CARDIOVASCULAR EXAMINATION: S1, S2, no murmurs RESPIRATORY EXAMINATION: Clear to auscultation, no wheezing ABDOMINAL EXAMINATION: Soft, nontender, nondistended, positive bowel sounds EXTREMITIES: Right arm range of motion limited due to pain and fracture SKIN: No rash NEUROLOGICAL EXAMINATION: Alert and oriented 3, no focal deficits PSYCHIATRIC EXAMINATION: Calm and cooperative LABORATORY DATA, IMAGING STUDIES, MICROBIOLOGY: Please see below. DVT prophylaxis ordered?: Yes ASSESSMENT AND PLAN: 83-year-old male with history of diabetes, hypertension, hypothyroidism, admitted for physical deconditioning and right humerus fracture. PROBLEMS: 1. Right humerus fracture: By orthopedics, continue sling, outpatient follow-up in 2 weeks. 2. Physical deconditioning:. Evaluated by physical therapy, recommend rehabilitation, social scientist to arrange. Patient usually cared for by who herself is hospitalized at this time. 3. Diabetes mellitus: Sliding scale insulin with fingersticks before every meal and at bedtime. 4. Hypertension: Continue home atenolol and Norvasc. 5. Hyperlipidemia: Continue simvastatin. 6. Hypothyroidism: Continue levothyroxine. DVT prophylaxis: Lovenox. GI prophylaxis: Not needed VS, I&O, 24H, Fishbone Vital Signs/I&O Vital Signs Date Time Temp Pulse Resp B/P (MAP) Pulse Ox O2 Delivery O2 Flow Rate FiO2 07/11/19 12:21 16 07/11/19 08:30 51 136/65 07/11/19 05:12 97.5 98 Room Air I&O- Last 24 Hours up to 6 AM 07/11/19 06:00 Intake Total 1770 ml Output Total 1075 ml Balance 695 ml Laboratory Data 24H LABS Laboratory Tests 2 07/10/19 17:31: Bedside Glucose (Misc Panel) 145H 07/10/19 19:54: Bedside Glucose (Misc Panel) 182H 07/11/19 06:10: Nucleated Red Blood Cells % (auto) 0.0, Anion Gap 5L, Glomerular Filtration Rate > 60.0, Calcium Level 9.0, Phosphorus Level 2.7, Magnesium Level 1.3L 07/11/19 11:32: Bedside Glucose (Misc Panel) 117H CBC/BMP Laboratory Tests 07/11/19 06:10 IRWIN MCQUEEN MD Jul 11, 2019 14:04
[2019-07-11 22:00] VITALS: BP 118/65
[2019-07-12] MEDS: PERCOCET 5MG/325MG TAB PO PRN ×3 (01:36→20:17)
[2019-07-12] MEDS: LEVOTHYROXINE 137MCG TABLET (0.137MG) PO SCH (05:38)
[2019-07-12 06:00] VITALS: BP 137/71
[2019-07-12 06:55] LABS: HEMATOCRIT 29.3 % (42.0-52.0); HEMOGLOBIN 9.8 g/dl (13.5-17.5); MEAN CORPUSCULAR HEMOGLOBIN 32.7 pg (27.0-33.0); MEAN CORPUSCULAR HGB CONC 33.4 g/dl (32.0-36.5); MEAN CORPUSCULAR VOLUME 97.7 fl (80.0-96.0); PLATELET COUNT, AUTOMATED 146 10^3/uL (150-450); WHITE BLOOD COUNT 5.7 10^3/uL (4.0-10.0)
[2019-07-12 07:22] LABS: CALCIUM LEVEL 9.1 MG/DL (8.8-10.2); CREATININE FOR GFR 1.25 MG/DL (0.70-1.30); GLOMERULAR FILTRATION RATE 58.7 (>35); PHOSPHORUS LEVEL 3.1 MG/DL (2.5-4.9); POTASSIUM SERUM 4.1 MEQ/L (3.5-5.1)
[2019-07-12] MEDS: ATENOLOL 50 MG TAB PO SCH (08:07)
[2019-07-12] MEDS: ALLOPURINOL 100 MG TAB PO SCH (08:07)
[2019-07-12] MEDS: HumaLOG INSULIN (NovoLOG) PER UNIT SC SCH ×4 (08:07→20:09)
[2019-07-12] MEDS: ASPIRIN 81 MG ENTERIC TAB PO SCH (08:07)
[2019-07-12] MEDS: amLODIPine 5 MG TAB PO SCH (08:07)
[2019-07-12] MEDS: SIMVASTATIN 40 MG TAB PO SCH (08:07)
--- NOTE | 2019-07-12 11:50 | IPNPDOC ---
Date Seen The patient was seen on 07/12/19. Progress Note SUBJECTIVE: 83-year-old male with past medical history of diabetes, hypertension, hypothyroidism, admitted for right humeral fracture. Patient underwent a mechanical fall a couple months ago with injury to his shoulder, found to have a comminuted right humerus fracture, evaluated by orthopedic surgery who recommends sling and outpatient follow-up in a couple weeks. Patient was evaluated by physical therapy who recommended rehabilitation placement as patient is cared for by his at home who herself is currently admitted for a ruptured appendix and is also scheduled to have a AAA surgery in the near future. Patient currently comfortable in bed, denies any complaints apart from mild shoulder pain, denies any shortness of breath, chest pain, nausea, vomiting, abdominal pain or diarrhea. 07/11/2019 Patient without any new complaints, tolerating diet, denies any short of breath, chest pain, vomiting, abdominal pain, diarrhea. 07/12/2019 Patient resting comfortably in chair, eating breakfast, reports mild discomfort at the shoulder, no other complaints at this time, awaiting placement. 10 point review of system was negative except for above PHYSICAL EXAMINATION: VITAL SIGNS: Please see below. GENERAL: No distress HEENT: Normocephalic, atraumatic, moist mucous membranes NECK: Supple CARDIOVASCULAR EXAMINATION: S1, S2, no murmurs RESPIRATORY EXAMINATION: Clear to auscultation, no wheezing ABDOMINAL EXAMINATION: Soft, nontender, nondistended, positive bowel sounds EXTREMITIES: Right arm range of motion limited due to pain and fracture SKIN: No rash NEUROLOGICAL EXAMINATION: Alert and oriented 3, no focal deficits PSYCHIATRIC EXAMINATION: Calm and cooperative LABORATORY DATA, IMAGING STUDIES, MICROBIOLOGY: Please see below. DVT prophylaxis ordered?: Yes ASSESSMENT AND PLAN: 83-year-old male with history of diabetes, hypertension, hypothyroidism, admitted for physical deconditioning and right humerus fracture. PROBLEMS: 1. Right humerus fracture: Evaluated by orthopedics, continue sling, outpatient follow-up in 2 weeks. 2. Age-related debility: Evaluated by physical therapy, recommend rehabilitation, director social to arrange. Patient usually cared for by who herself is hospitalized at this time. 3. Diabetes mellitus: Sliding scale insulin with fingersticks before every meal and at bedtime. 4. Hypertension: Continue home atenolol and Norvasc. 5. Hyperlipidemia: Continue simvastatin. 6. Hypothyroidism: Continue levothyroxine. DVT prophylaxis: Lovenox. GI prophylaxis: Not needed VS, I&O, 24H, Fishbone Vital Signs/I&O Vital Signs Date Time Temp Pulse Resp B/P (MAP) Pulse Ox O2 Delivery O2 Flow Rate FiO2 07/12/19 08:07 58 137/71 07/12/19 06:00 96.9 18 96 Room Air I&O- Last 24 Hours up to 6 AM 07/12/19 06:00 Intake Total 1125 ml Output Total 500 ml Balance 625 ml Laboratory Data 24H LABS Laboratory Tests 2 07/11/19 16:42: Bedside Glucose (Misc Panel) 135H 07/11/19 20:28: Bedside Glucose (Misc Panel) 218H 07/12/19 06:27: Nucleated Red Blood Cells % (auto) 0.0, Anion Gap 7L, Glomerular Filtration Rate 58.7, Calcium Level 9.1, Phosphorus Level 3.1, Magnesium Level 2.0 CBC/BMP Laboratory Tests 07/12/19 06:27 IRWIN MCQUEEN MD Jul 12, 2019 11:50
[2019-07-12] MEDS: ENOXAPARIN 30 MG/0.3 ML SYR (J1650) SC SCH (12:50)
[2019-07-12 15:03] VITALS: BP 128/68
[2019-07-12 22:00] VITALS: BP 125/57
[2019-07-13] MEDS: PERCOCET 5MG/325MG TAB PO PRN (05:17)
[2019-07-13] MEDS: LEVOTHYROXINE 137MCG TABLET (0.137MG) PO SCH (05:17)
[2019-07-13 06:00] VITALS: BP 138/72
[2019-07-13] MEDS: ATENOLOL 50 MG TAB PO SCH (09:00)
[2019-07-13] MEDS: ENOXAPARIN 30 MG/0.3 ML SYR (J1650) SC SCH (09:02)
[2019-07-13] MEDS: HumaLOG INSULIN (NovoLOG) PER UNIT SC SCH ×2 (09:02→12:00)
[2019-07-13] MEDS: ALLOPURINOL 100 MG TAB PO SCH (09:03)
[2019-07-13] MEDS: ASPIRIN 81 MG ENTERIC TAB PO SCH (09:03)
[2019-07-13] MEDS: SIMVASTATIN 40 MG TAB PO SCH (09:03)
[2019-07-13 09:05] VITALS: BP 110/60
[2019-07-13 09:11] VITALS: BP 110/60
[2019-07-13] MEDS: amLODIPine 5 MG TAB PO SCH (09:11)
--- NOTE | 2019-07-13 11:37 | DS.PDOC ---
Discharge Summary General Date of Admission Jul 05, 2019 at 19:00 Date of Discharge 07/13/2019 Attending Physician: IRWIN MCQUEEN MD Discharge Summary PROCEDURES PERFORMED DURING STAY: None. ADMITTING DIAGNOSES: 1. Physical deconditioning, right humeral fracture. DISCHARGE DIAGNOSES: 1. Physical deconditioning, right humeral fracture. COMPLICATIONS/CHIEF COMPLAINT: Fracture Humerus Weakness. HISTORY OF PRESENT ILLNESS: 83-year-old male with past medical history of hypertension, diabetes, hypothyroidism, was admitted for right humerus fracture and physical deconditioning. Patient is usually cared for by his , but she was recently admitted for ruptured appendix and is scheduled to undergo a AAA repair in the next few weeks. He was evaluated by physical therapy, rehabilitation placement was recommended. He was also [facility] orthopedic surgery for the right humerus fracture which she sustained during a fall 5-6 weeks ago, plan is for outpatient orthopedic surgery follow-up in 2 weeks with repeat x- ray. Patient has hemodynamic stable for discharge to rehabilitation placement. HOSPITAL COURSE: As above. DISCHARGE MEDICATIONS: Please see below. ALLERGIES: Please see below. PHYSICAL EXAMINATION: VITAL SIGNS: Please see below. GENERAL: No distress HEENT: Normocephalic, atraumatic, moist mucous membranes NECK: Supple CARDIOVASCULAR EXAMINATION: S1, S2, no murmurs RESPIRATORY EXAMINATION: Clear to auscultation, no wheezing ABDOMINAL EXAMINATION: Soft, nontender, nondistended, positive bowel sounds EXTREMITIES: Right arm range of motion limited due to pain and fracture SKIN: No rash NEUROLOGICAL EXAMINATION: Alert and oriented 3, no focal deficits PSYCHIATRIC EXAMINATION: Calm and cooperative LABORATORY DATA: Please see below. IMAGING: X-ray with a right humerus fracture PROGNOSIS: Guarded ACTIVITY: As tolerated. DIET: Cardiac with consistent carbs DISCHARGE PLAN: Patient will follow-up with orthopedic surgery and PCP in 1-2 weeks after discharge from rehabilitation DISPOSITION: Rehabilitation facility. DISCHARGE INSTRUCTIONS: 1. as above. DISCHARGE CONDITION: Stable. TIME SPENT ON DISCHARGE: Greater than 26 minutes. Vital Signs/I&Os Vital Signs Date Time Temp Pulse Resp B/P (MAP) Pulse Ox O2 Delivery O2 Flow Rate FiO2 07/13/19 09:11 52 110/60 07/13/19 06:00 96.9 18 97 Room Air I&O- Last 24 Hours up to 6 AM 07/13/19 06:00 Intake Total 2040 ml Output Total 675 ml Balance 1365 ml Laboratory Data Labs 24H Laboratory Tests 2 07/12/19 12:07: Bedside Glucose (Misc Panel) 145H 07/12/19 16:38: Bedside Glucose (Misc Panel) 153H 07/12/19 20:08: Bedside Glucose (Misc Panel) 223H 07/13/19 06:19: Bedside Glucose (Misc Panel) 153H FSBS Laboratory Tests Test 07/12/19 12:07 07/12/19 16:38 07/12/19 20:08 07/13/19 06:19 Range/Units Bedside Glucose (Misc Panel) 145 153 223 153 83-110 MG/DL Discharge Medications Scheduled Allopurinol (Allopurinol) 100 Mg Tablet, 100 MG PO DAILY, (Reported) Amlodipine Besylate (Amlodipine Besylate) 2.5 Mg Tablet, 5 MG PO DAILY, (Reported) Aspirin (Aspir 81) 81 Mg Tablet.dr, 81 MG PO DAILY, (Reported) Atenolol (Atenolol) 100 Mg Tablet, 100 MG PO DAILY, (Reported) Calcium Carbonate (Calcium) 600 Mg Tablet, 600 MG PO DAILY, (Reported) Glimepiride (Glimepiride) 2 Mg Tablet, 2 MG PO BID, (Reported) Levothyroxine Sodium (Levothyroxine Sodium) 137 Mcg Tablet, 137 MCG PO DAILY, (Reported) Metformin HCl (Metformin HCl) 500 Mg Tablet, 500 MG PO BID, (Reported) Niacin (Slo-Niacin) 500 Mg Tablet.er, 500 MG PO DAILY, (Reported) Simvastatin (Simvastatin) 40 Mg Tablet, 40 MG PO DAILY, (Reported) Sitagliptin Phosphate (Januvia) 100 Mg Tablet, 100 MG PO DAILY, (Reported) Scheduled PRN Carboxymethylcellulose Sodium (Refresh Tears) 15 Ml Drops, 1 DROP OU TID PRN for DRY EYES, (Reported) Allergies Coded Allergies: No Known Allergies (Unverified , 07/05/19) IRWIN MCQUEEN MD Jul 13, 2019 11:37
[2019-07-13] MEDS ORDERED: SIMV20TA2 PO (11:52)
[2019-07-13 13:00] VITALS: BP 136/72
== END 2019-07-13 15:15 | DRG 884 ==
LOC: M ED 13:33 → M ED INP 13:34 → UNDOADMOB 13:34 → M ED INP 16:51 → UNDOADMOB 16:51 → INTOOBSV 19:00 → OBSVTOIN 19:00 → M ED INP 19:02 → M MS5PR 19:02
PROVIDERS: ADMIT Student in an Organized Health Care Education/Training Program; ATTEND Internal Medicine
DX: R54 Age-related physical debility (principal); S42.291A Other displaced fracture of upper end of right humerus, initial encounter for closed fracture; W18.09XA Striking against other object with subsequent fall, initial encounter; Y92.009 Unspecified place in unspecified non-institutional (private) residence as the place of occurrence of the external cause; I10 Essential (primary) hypertension; E11.9 Type 2 diabetes mellitus without complications; F32.9 Major depressive disorder, single episode, unspecified; E03.9 Hypothyroidism, unspecified; M10.9 Gout, unspecified; Z90.49 Acquired absence of other specified parts of digestive tract; Z99.3 Dependence on wheelchair; R53.81 Other malaise; Z79.82 Long term (current) use of aspirin; Z79.84 Long term (current) use of oral hypoglycemic drugs; Z79.899 Other long term (current) drug therapy

== ENCOUNTER → 2023-12-04 | Outpatient (REF) ==
[~2023-12-04] MED LIST changes: +ALLO100T PO; +AMLO25TA PO; +ASPI81TA86 PO; +ATEN100T PO; +CALC600T60 PO; +GLIM2TAB4 PO; +JANU100T PO; +LEVO137T2 PO; +METF-839 PO; +OMEGCAP4 PO; +PANT40TA29 PO; -PROHANCE 279.3MG/ML 5ML VIAL (A9576) As Ordered; +REFR0.5D8 OU; +SIMV20TA22 PO; +SIMV40TA20 PO; +STAR120T3 PO; +[UNRECOGNIZED DRUG - CODE] PO
[2023-12-04 09:54] LABS: HEMATOCRIT 42.7 % (42.0-52.0); HEMOGLOBIN 13.8 g/dl (13.5-17.5); MEAN CORPUSCULAR HEMOGLOBIN 32.5 pg (27.0-33.0); MEAN CORPUSCULAR HGB CONC 32.3 g/dl (32.0-36.5); MEAN CORPUSCULAR VOLUME 100.5 fl (80.0-96.0); PLATELET COUNT, AUTOMATED 211 10^3/uL (150-450); RED BLOOD COUNT 4.25 10^6/uL (4.30-6.10)
[2023-12-04 10:16] LABS: CALCIUM LEVEL 9.4 MG/DL (8.3-10.6); CREATININE FOR GFR 1.43 MG/DL (0.70-1.30); GLOMERULAR FILTRATION RATE 49.7 (>35); POTASSIUM SERUM 4.7 MMOL/L (3.5-5.1)
== END ==
PROVIDERS: ATTEND Physician Assistant
DX: I10 Essential (primary) hypertension (principal)

== ENCOUNTER → 2023-12-09 | Outpatient (REF) | PROVIDERS: ATTEND Internal Medicine | DX: R05.9 Cough, unspecified (principal) ==

== ENCOUNTER → 2023-12-09 | Outpatient (REF) ==
[2023-12-09 14:37] LABS: HEMATOCRIT 40.1 % (42.0-52.0); HEMOGLOBIN 13.2 g/dl (13.5-17.5); MEAN CORPUSCULAR HEMOGLOBIN 32.8 pg (27.0-33.0); MEAN CORPUSCULAR HGB CONC 32.9 g/dl (32.0-36.5); MEAN CORPUSCULAR VOLUME 99.8 fl (80.0-96.0); PLATELET COUNT, AUTOMATED 252 10^3/uL (150-450); RED BLOOD COUNT 4.02 10^6/uL (4.30-6.10); WHITE BLOOD COUNT 14.5 10^3/uL (4.0-10.0)
[2023-12-09 14:56] LABS: CALCIUM LEVEL 9.5 MG/DL (8.3-10.6); CREATININE FOR GFR 1.82 MG/DL (0.70-1.30); GLOMERULAR FILTRATION RATE 37.6 (>35); POTASSIUM SERUM 5.4 MMOL/L (3.5-5.1)
== END ==
PROVIDERS: ATTEND Physician Assistant
DX: R05.9 Cough, unspecified (principal)

== ENCOUNTER → 2023-12-10 | Outpatient (REF) ==
[2023-12-10 13:42] LABS: BASO % 0.3 % (0.0-1.0); EOS # 0.1 10^3/uL (0.0-0.5); EOS % 0.9 % (0.0-3.0); HEMATOCRIT 42.3 % (42.0-52.0); HEMOGLOBIN 13.6 g/dl (13.5-17.5); LYMPH # 2.6 10^3/uL (1.5-5.0); LYMPH % 21.5 % (24.0-44.0); MEAN CORPUSCULAR HEMOGLOBIN 32.9 pg (27.0-33.0); MEAN CORPUSCULAR HGB CONC 32.2 g/dl (32.0-36.5); MEAN CORPUSCULAR VOLUME 102.2 fl (80.0-96.0); MONO # 0.7 10^3/uL (0.0-0.8); NEUTROPHILS # 8.5 10^3/uL (1.5-8.5); PLATELET COUNT, AUTOMATED 218 10^3/uL (150-450); RED BLOOD COUNT 4.14 10^6/uL (4.30-6.10); WHITE BLOOD COUNT 11.9 10^3/uL (4.0-10.0)
[2023-12-10 14:10] LABS: ALBUMIN 3.4 G/DL (3.2-5.2); BILIRUBIN,DIRECT 0.3 MG/DL (<0.4); BILIRUBIN,TOTAL 0.9 MG/DL (0.3-1.2); CALCIUM LEVEL 9.1 MG/DL (8.3-10.6); CREATININE FOR GFR 1.73 MG/DL (0.70-1.30); GLOMERULAR FILTRATION RATE 39.9 (>35); POTASSIUM SERUM 5.8 MMOL/L (3.5-5.1); TOTAL PROTEIN 6.1 G/DL (5.7-8.2)
== END ==
PROVIDERS: ATTEND Physician Assistant
DX: D72.829 Elevated white blood cell count, unspecified (principal)

== ENCOUNTER → 2023-12-11 | Outpatient (REF) ==
[2023-12-11 08:10] LABS: HEMATOCRIT 42.2 % (42.0-52.0); HEMOGLOBIN 13.8 g/dl (13.5-17.5); MEAN CORPUSCULAR HEMOGLOBIN 32.8 pg (27.0-33.0); MEAN CORPUSCULAR HGB CONC 32.7 g/dl (32.0-36.5); MEAN CORPUSCULAR VOLUME 100.2 fl (80.0-96.0); PLATELET COUNT, AUTOMATED 192 10^3/uL (150-450); RED BLOOD COUNT 4.21 10^6/uL (4.30-6.10); WHITE BLOOD COUNT 10.5 10^3/uL (4.0-10.0)
[2023-12-11 08:35] LABS: CREATININE FOR GFR 1.87 MG/DL (0.70-1.30); GLOMERULAR FILTRATION RATE 36.5 (>35); POTASSIUM SERUM 5.4 MMOL/L (3.5-5.1)
[2023-12-11 11:07] LABS: ALBUMIN 3.3 G/DL (3.2-5.2)
[2023-12-11 13:06] LABS: CALCIUM LEVEL 9.7 MG/DL (8.3-10.6)
== END ==
PROVIDERS: ATTEND Physician Assistant
DX: I10 Essential (primary) hypertension (principal)

== ENCOUNTER → 2023-12-14 | Outpatient (REF) ==
[2023-12-14 09:18] LABS: CALCIUM LEVEL 9.4 MG/DL (8.3-10.6); CREATININE FOR GFR 2.02 MG/DL (0.70-1.30); GLOMERULAR FILTRATION RATE 33.4 (>35); POTASSIUM SERUM 4.8 MMOL/L (3.5-5.1)
[2023-12-14 09:19] LABS: HEMATOCRIT 42.3 % (42.0-52.0); HEMOGLOBIN 13.6 g/dl (13.5-17.5); MEAN CORPUSCULAR HEMOGLOBIN 32.2 pg (27.0-33.0); MEAN CORPUSCULAR HGB CONC 32.2 g/dl (32.0-36.5); PLATELET COUNT, AUTOMATED 224 10^3/uL (150-450); RED BLOOD COUNT 4.23 10^6/uL (4.30-6.10); WHITE BLOOD COUNT 11.4 10^3/uL (4.0-10.0)
== END ==
PROVIDERS: ATTEND Physician Assistant
DX: I50.9 Heart failure, unspecified (principal)

== ENCOUNTER → 2023-12-17 | Outpatient (REF) ==
[~2023-12-17] MED LIST changes: +ACET650T15 PO; +APAP325T4 PO; +BISA10SU4 PR; +CETI10CA2 PO; +CIDA500T2 PO; +CVS2POW3 TOP; +FLEEENE12 PR; +GLUC1KIT IM; +GNP250TA9 PO; +MENT120C2 TOP; +METO1TAB87 PO; +MILKSUS3 PO; +MIRA3350 PO; +MUCI600T31 PO; +NATE120T4 PO; +NITR0.4D6 TD; +OMEG10002 PO; +PROBCAP14 PO; +THERTAB52 PO; +TRUL10IN SC; +VERI5TAB PO; +VITA200031 PO; +VITA500C24 PO
== END ==
PROVIDERS: ATTEND Physician Assistant
DX: I50.9 Heart failure, unspecified (principal); Z53.8 Procedure and treatment not carried out for other reasons

== ENCOUNTER 2023-12-18 13:52 | Inpatient (IN) | payer MEDICARE ==
[~2023-12-18] VITALS: Ht 172.7 cm; Wt 63.0 kg
[~2023-12-18 13:52] MED LIST changes: -ACET650T15 PO; -APAP325T4 PO; -BISA10SU4 PR; -CETI10CA2 PO; -CIDA500T2 PO; -CVS2POW3 TOP; -FLEEENE12 PR; -GLUC1KIT IM; -GNP250TA9 PO; -MENT120C2 TOP; -METO1TAB87 PO; -MILKSUS3 PO; -MIRA3350 PO; -MUCI600T31 PO; -NATE120T4 PO; -NITR0.4D6 TD; -OMEG10002 PO; -PROBCAP14 PO; -THERTAB52 PO; -TRUL10IN SC; -VERI5TAB PO; -VITA200031 PO; -VITA500C24 PO
[2023-12-18 15:50] LABS: BASO # 0.1 10^3/uL (0.0-0.2); BASO % 0.4 % (0.0-1.0); EOS # 0.2 10^3/uL (0.0-0.5); EOS % 1.6 % (0.0-3.0); HEMATOCRIT 40.5 % (42.0-52.0); HEMOGLOBIN 13.1 g/dl (13.5-17.5); LYMPH # 2.3 10^3/uL (1.5-5.0); LYMPH % 17.1 % (24.0-44.0); MEAN CORPUSCULAR HEMOGLOBIN 32.6 pg (27.0-33.0); MEAN CORPUSCULAR HGB CONC 32.3 g/dl (32.0-36.5); MEAN CORPUSCULAR VOLUME 100.7 fl (80.0-96.0); MONO # 0.9 10^3/uL (0.0-0.8); NEUTROPHILS # 9.8 10^3/uL (1.5-8.5); NEUTROPHILS % 73.4 % (36.0-66.0); PLATELET COUNT, AUTOMATED 228 10^3/uL (150-450); RED BLOOD COUNT 4.02 10^6/uL (4.30-6.10); WHITE BLOOD COUNT 13.4 10^3/uL (4.0-10.0)
[2023-12-18 16:21] LABS: CALCIUM LEVEL 9.7 MG/DL (8.3-10.6); CREATININE FOR GFR 2.14 MG/DL (0.70-1.30); GLOMERULAR FILTRATION RATE 31.2 (>35); MAGNESIUM LEVEL 2.5 MG/DL (1.8-2.4); PHOSPHORUS LEVEL 3.6 MG/DL (2.4-5.1); POTASSIUM SERUM 5.3 MMOL/L (3.5-5.1)
[2023-12-18] MEDS ORDERED: NS 1,000 ML IV SCH (17:50)
[2023-12-18] MEDS: HumuLIN R (REGULAR) INSULIN (NovoLIN R) **100U/ML** PER UNIT IV ONE (18:18)
[2023-12-18] MEDS: DEXTROSE 50% 50ML SYRINGE IV STA (18:18)
[2023-12-18] MEDS: CALCIUM GLUCONATE 1,000 MG in D5W MINI-BAG PLUS 100 ML IV ONE (18:18)
[2023-12-18] MEDS: PATIROMER SORBITEX CALCIUM 8.4 GM POWDER PACKET (VELTASSA) PO ONE (18:50)
[2023-12-18] MEDS ORDERED: IPRATROPIUM 0.5MG/ALBUTEROL 2.5MG INH SOL UD 3ML (DUONEB) NEB PRN (18:50)
[2023-12-18] MEDS ORDERED: OMEG10002 PO (19:31)
[2023-12-18] MEDS ORDERED: PROBCAP14 PO (19:31)
[2023-12-18] MEDS: NS 1,000 ML IV ONE (19:40)
[2023-12-18] MEDS: SODIUM BICARBONATE 150 MEQ in D5W 1,000 ML IV SCH (19:55)
[2023-12-18] MEDS ORDERED: MUCI600T31 PO (20:08)
[2023-12-18] MEDS ORDERED: ACET650T15 PO (20:08)
[2023-12-18] MEDS ORDERED: APAP325T4 PO ×2 (20:08)
[2023-12-18] MEDS ORDERED: MENT120C2 TOP (20:08)
[2023-12-18] MEDS ORDERED: MIRA3350 PO (20:08)
[2023-12-18] MEDS ORDERED: VITA200031 PO (20:08)
[2023-12-18] MEDS ORDERED: METO1TAB87 PO (20:08)
[2023-12-18] MEDS ORDERED: TRUL10IN SC (20:08)
[2023-12-18] MEDS ORDERED: NITR0.4D6 TD (20:08)
[2023-12-18] MEDS ORDERED: VITA500C24 PO (20:08)
[2023-12-18] MEDS ORDERED: CVS2POW3 TOP (20:08)
[2023-12-18] MEDS ORDERED: CETI10CA2 PO (20:08)
[2023-12-18] MEDS ORDERED: THERTAB52 PO (20:08)
[2023-12-18] MEDS ORDERED: CIDA500T2 PO (20:08)
[2023-12-18] MEDS ORDERED: VERI5TAB PO (20:08)
[2023-12-18] MEDS ORDERED: GNP250TA9 PO (20:08)
[2023-12-18] MEDS ORDERED: NATE120T4 PO (20:08)
[2023-12-18] MEDS ORDERED: GLUC1KIT IM (20:13)
[2023-12-18] MEDS ORDERED: BISA10SU4 PR (20:13)
[2023-12-18] MEDS ORDERED: MILKSUS3 PO (20:13)
[2023-12-18] MEDS ORDERED: FLEEENE12 PR (20:13)
[2023-12-18] MEDS ORDERED: HOME MED LIST COMPLETE! XX SCH (20:15)
[2023-12-18 20:38] LABS: C REACTIVE PROTEIN QUANTITATIV 0.7 MG/DL (<1.0)
[2023-12-18 20:40] LABS: IRON (FE) 36 UG/DL (65-175); PERCENT SATURATION 16.1 % (19.7-50.0); TOTAL IRON BINDING CAPACITY 224 UG/DL (250-425)
[2023-12-18 20:43] LABS: FREE T4 1.64 NG/DL (0.89-1.76); THYROID STIMULATING HORMONE 0.476 uIU/ML (0.55-4.78); VITAMIN B12 LEVEL 397 PG/ML (211-911)
[2023-12-18 20:44] LABS: FOLATE > 24.00 NG/ML (>5.4)
[2023-12-18] MEDS ORDERED: SIMVASTATIN 20 MG TAB PO SCH (21:00)
[2023-12-18] MEDS: ARTIFICIAL TEARS DROPS 15ML BTL (VISINE DRY RELIEF) OU SCH (21:00)
[2023-12-18] MEDS ORDERED: guaiFENesin ER TABLET 600 MG TAB PO SCH (21:00)
[2023-12-18] MEDS: guaiFENesin ER TABLET 600 MG TAB PO SCH (21:00)
[2023-12-18] MEDS: METOPROLOL TART 25 MG TABLET PO SCH (21:00)
[2023-12-18] MEDS ORDERED: BISACODYL 10MG SUPP PR PRN (21:10)
[2023-12-18] MEDS ORDERED: MIRALAX *UNIT DOSE* 17GM PACKET PO PRN (21:10)
[2023-12-18 21:43] LABS: FREE T3 3.1 PG/ML (2.3-4.2)
[2023-12-18 22:39] LABS: PROCALCITONIN 0.17 ng/ml
[2023-12-18 23:26] VITALS: BP 135/78; TEMP 97.4; O2SAT 96
[2023-12-19 01:03] LABS: CALCIUM LEVEL 9.1 MG/DL (8.3-10.6); CREATININE FOR GFR 2.05 MG/DL (0.70-1.30); GLOMERULAR FILTRATION RATE 32.8 (>35); POTASSIUM SERUM 5.6 MMOL/L (3.5-5.1)
[2023-12-19 04:56] VITALS: BP 168/74; TEMP 97.4; O2SAT 94
[2023-12-19] MEDS: LEVOTHYROXINE 137MCG TABLET (0.137MG) PO SCH (06:00)
[2023-12-19 06:23] LABS: CALCIUM LEVEL 8.9 MG/DL (8.3-10.6); CREATININE FOR GFR 1.97 MG/DL (0.70-1.30); GLOMERULAR FILTRATION RATE 34.3 (>35); POTASSIUM SERUM 5.6 MMOL/L (3.5-5.1)
[2023-12-19 08:04] VITALS: BP 159/87; TEMP 97; O2SAT 95
[2023-12-19] MEDS: LACTOBACILLUS ACIDOPHILUS CAP (BACID) PO SCH (08:56)
[2023-12-19] MEDS: OMEGA-3 1000MG CAPSULE PO SCH (08:56)
[2023-12-19] MEDS: OYSTER SHELL CALCIUM 500 MG TAB PO SCH (08:56)
[2023-12-19] MEDS: ASPIRIN 81MG CHEW TABLET PO SCH (08:56)
[2023-12-19] MEDS: SIMVASTATIN 40 MG TAB PO SCH (08:57)
[2023-12-19] MEDS: allopurinoL 100 MG TAB PO SCH (08:57)
[2023-12-19] MEDS ORDERED: atenoloL 50 MG TAB PO SCH (09:00)
[2023-12-19] MEDS ORDERED: NIACIN 100MG TAB PO SCH (09:00)
[2023-12-19] MEDS: PATIROMER SORBITEX CALCIUM 8.4 GM POWDER PACKET (VELTASSA) PO ONE (10:12)
[2023-12-19] MEDS: CALCIUM GLUCONATE 1,000 MG in D5W MINI-BAG PLUS 100 ML IV ONE (10:36)
[2023-12-19 10:55] LABS: ABG BASE EXCESS -0.8 (-2.0-2.0); ABG HCO3 22.1 MMOL/L (22.0-26.0); ABG O2 SATURATION 96.3 % (95.0-99.0); ABG PARTIAL PRESSURE CO2 31.4 mmHg (35.0-45.0); ABG PARTIAL PRESSURE O2 79.9 mmHg (75.0-100.0); ABG STANDARD HCO3 23.8 MMOL/L. (22.0-26.0); ABG pH (ARTERIAL) 7.465 UNITS (7.350-7.450)
[2023-12-19 11:45] LABS: IONIZED CALCIUM 4.9 MG/DL (4.5-5.3)
[2023-12-19] MEDS: SOD POLYSTYRENE SULFONATE SUSP 30GM 120ML ENEMA PR ONE (11:55)
[2023-12-19 12:23] LABS: CALCIUM LEVEL 9.5 MG/DL (8.3-10.6); CREATININE FOR GFR 1.82 MG/DL (0.70-1.30); GLOMERULAR FILTRATION RATE 37.6 (>35); POTASSIUM SERUM 4.9 MMOL/L (3.5-5.1)
[2023-12-19 16:26] VITALS: BP 146/65; TEMP 98.7; O2SAT 95
[2023-12-19] MEDS: SODIUM BICARBONATE 150 MEQ in D5W 1,000 ML IV SCH (16:50)
[2023-12-19 18:21] LABS: IONIZED CALCIUM 4.9 MG/DL (4.5-5.3)
[2023-12-19 19:01] LABS: CALCIUM LEVEL 9.6 MG/DL (8.3-10.6); CREATININE FOR GFR 1.76 MG/DL (0.70-1.30); GLOMERULAR FILTRATION RATE 39.1 (>35); POTASSIUM SERUM 4.8 MMOL/L (3.5-5.1)
[2023-12-19 20:11] VITALS: BP 133/89; TEMP 97.4; O2SAT 98
[2023-12-19 23:05] VITALS: BP 129/91; TEMP 98; O2SAT 97
[2023-12-20] VITALS (7 sets, daily range): BP systolic 140–159; BP diastolic 58–92; TEMP 96.9–97.9; O2SAT 96–100
[2023-12-20 00:06] LABS: IONIZED CALCIUM 4.8 MG/DL (4.5-5.3)
[2023-12-20 00:33] LABS: CALCIUM LEVEL 9.4 MG/DL (8.3-10.6); CREATININE FOR GFR 1.7 MG/DL (0.70-1.30); GLOMERULAR FILTRATION RATE 40.7 (>35); POTASSIUM SERUM 5.1 MMOL/L (3.5-5.1)
[2023-12-20] MEDS: METOPROLOL 5 MG/5 ML VIAL IV SCH ×2 (01:16→13:33)
[2023-12-20 05:42] LABS: IONIZED CALCIUM 4.6 MG/DL (4.5-5.3)
[2023-12-20 06:10] LABS: CALCIUM LEVEL 9.1 MG/DL (8.3-10.6); CREATININE FOR GFR 1.61 MG/DL (0.70-1.30); GLOMERULAR FILTRATION RATE 43.3 (>35); POTASSIUM SERUM 4.8 MMOL/L (3.5-5.1)
[2023-12-20] MEDS ORDERED: VANCOMYCIN HCL 1,000 MG, VIAL MATE ADAPTER 1 EACH in D5W 250 ML IV SCH (07:45)
[2023-12-20 08:32] LABS: C REACTIVE PROTEIN QUANTITATIV 1.4 MG/DL (<1.0)
[2023-12-20 08:45] LABS: PROCALCITONIN 0.13 ng/ml
[2023-12-20] MEDS: VANCOMYCIN HCL 750 MG, VIAL MATE ADAPTER 1 EACH in D5W 250 ML IV ONE (09:47)
[2023-12-20] MEDS ORDERED: SODIUM BICARBONATE 150 MEQ in D5W 1,000 ML IV SCH (11:15)
[2023-12-20] MEDS: D5W 1,000 ML IV SCH (11:58)
[2023-12-20] MEDS: VANCOMYCIN HCL 500 MG in D5W MINI-BAG PLUS 100 ML IV ONE (11:59)
[2023-12-20] MEDS ORDERED: CALCIUM GLUCONATE 1,000 MG in D5W MINI-BAG PLUS 100 ML IV ONE (12:00)
[2023-12-20 12:05] LABS: IONIZED CALCIUM 4.4 MG/DL (4.5-5.3)
[2023-12-20 12:14] LABS: BASO % 0.3 % (0.0-1.0); EOS # 0.2 10^3/uL (0.0-0.5); HEMOGLOBIN 12.5 g/dl (13.5-17.5); LYMPH % 19.1 % (24.0-44.0); MEAN CORPUSCULAR HEMOGLOBIN 32.4 pg (27.0-33.0); MEAN CORPUSCULAR HGB CONC 32.9 g/dl (32.0-36.5); MEAN CORPUSCULAR VOLUME 98.4 fl (80.0-96.0); MONO # 0.8 10^3/uL (0.0-0.8); MONO % 7.9 % (2.0-8.0); NEUTROPHILS # 7.4 10^3/uL (1.5-8.5); NEUTROPHILS % 70.2 % (36.0-66.0); PLATELET COUNT, AUTOMATED 172 10^3/uL (150-450); RED BLOOD COUNT 3.86 10^6/uL (4.30-6.10); WHITE BLOOD COUNT 10.6 10^3/uL (4.0-10.0)
[2023-12-20 12:37] LABS: ERYTHROCYTE SEDIMENTATION RATE 21 mm/hr (0-20)
[2023-12-20 12:41] LABS: C REACTIVE PROTEIN QUANTITATIV 1.9 MG/DL (<1.0)
[2023-12-20 12:42] LABS: CALCIUM LEVEL 8.7 MG/DL (8.3-10.6); CREATININE FOR GFR 1.47 MG/DL (0.70-1.30); GLOMERULAR FILTRATION RATE 48.1 (>35); POTASSIUM SERUM 4.2 MMOL/L (3.5-5.1)
[2023-12-20 12:49] LABS: PROCALCITONIN 0.13 ng/ml
[2023-12-20] MEDS ORDERED: SOD POLYSTYRENE SULFONATE SUSP 30GM 120ML ENEMA PR ONE (13:00)
[2023-12-20] MEDS: NITROGLYCERIN 2% OINT 1 GM *U/D* PKT TOP ONE (13:34)
[2023-12-20] MEDS: CALCIUM GLUCONATE 1,000 MG in D5W MINI-BAG PLUS 100 ML IV ONE (13:42)
[2023-12-20] MEDS: hydrALAZINE 20MG/ML 1ML VIAL IV SCH (14:00)
[2023-12-20 18:17] LABS: IONIZED CALCIUM 4.7 MG/DL (4.5-5.3)
[2023-12-20] MEDS: LEVOTHYROXINE 100MCG (0.1MG) 5ML SDV PF (SOLUTION FORM) IV SCH (18:23)
[2023-12-20 18:52] LABS: CALCIUM LEVEL 9.1 MG/DL (8.3-10.6); CREATININE FOR GFR 1.41 MG/DL (0.70-1.30); GLOMERULAR FILTRATION RATE 50.5 (>35); POTASSIUM SERUM 4.2 MMOL/L (3.5-5.1)
[2023-12-21] VITALS (23 sets, daily range): BP systolic 77–124; BP diastolic 50–68; TEMP 97.1–97.6; O2SAT 88–100
[2023-12-21 00:28] LABS: IONIZED CALCIUM 4.5 MG/DL (4.5-5.3)
[2023-12-21 00:57] LABS: CALCIUM LEVEL 8.7 MG/DL (8.3-10.6); CREATININE FOR GFR 1.39 MG/DL (0.70-1.30); GLOMERULAR FILTRATION RATE 51.3 (>35); POTASSIUM SERUM 4.2 MMOL/L (3.5-5.1)
[2023-12-21] MEDS: dilTIAZem 25MG/5ML VIAL IV PRN (01:27)
[2023-12-21] MEDS: dilTIAZem 25MG/5ML VIAL IV ONE (02:12)
[2023-12-21] MEDS: DIGOXIN INJ 0.5 MG/2 ML AMP IV STA (03:36)
[2023-12-21 07:17] LABS: IONIZED CALCIUM 3.7 MG/DL (4.5-5.3)
[2023-12-21 07:37] LABS: INR 1.08; PARTIAL THROMBOPLASTIN TIME 26.2 SECONDS (24.8-34.2); PROTHROMBIN TIME 13.7 SECONDS (12.5-14.5)
[2023-12-21 07:41] LABS: CALCIUM LEVEL 8.7 MG/DL (8.3-10.6); CREATININE FOR GFR 1.44 MG/DL (0.70-1.30); GLOMERULAR FILTRATION RATE 49.3 (>35); POTASSIUM SERUM 4.5 MMOL/L (3.5-5.1)
[2023-12-21] MEDS ORDERED: VANCOMYCIN HCL 750 MG, VIAL MATE ADAPTER 1 EACH in D5W 250 ML IV SCH (08:00)
[2023-12-21] MEDS: NS 1,000 ML IV SCH (08:05)
[2023-12-21 08:15] LABS: ABG BASE EXCESS 3.9 (-2.0-2.0); ABG HCO3 26.5 MMOL/L (22.0-26.0); ABG O2 SATURATION 96.7 % (95.0-99.0); ABG PARTIAL PRESSURE CO2 33.7 mmHg (35.0-45.0); ABG PARTIAL PRESSURE O2 79.6 mmHg (75.0-100.0); ABG STANDARD HCO3 27.9 MMOL/L. (22.0-26.0); ABG TOTAL CO2 27.6 MMOL/L (23.0-31.0); ABG pH (ARTERIAL) 7.514 UNITS (7.350-7.450)
[2023-12-21] MEDS: diltiaZEM 125 MG in NS 100 ML IV SCH (08:28)
[2023-12-21] MEDS: DIGOXIN INJ 0.5 MG/2 ML AMP IV ONE ×2 (08:41→15:13)
[2023-12-21] MEDS: CALCIUM GLUCONATE 1,000 MG in D5W MINI-BAG PLUS 100 ML IV ONE (08:43)
[2023-12-21] MEDS: ENOXAPARIN 60MG/0.6ML SYRINGE (J1650 PER 10MG) SC SCH (08:58)
[2023-12-21] MEDS: VANCOMYCIN HCL 1,000 MG, VIAL MATE ADAPTER 1 EACH in D5W 250 ML IV SCH (08:58)
[2023-12-21] MEDS ORDERED: AMIODARONE HCL 150 MG/100 ML PREMIXED BAG (NEXTERONE) As Ordered ONE (11:02)
[2023-12-21] MEDS: AMIODARONE HCL 150 MG in IV 1 EA IV STA (11:13)
[2023-12-21] MEDS: NS 500 ML IV ONE ×2 (11:13→13:51)
[2023-12-21] MEDS ORDERED: LORazepam 2 MG/ML 1ML VIAL IV PRN (14:05)
[2023-12-21] MEDS ORDERED: SCOPOLAMINE 1MG TRANSDERMAL PATCH TOP PRN (14:05)
[2023-12-21] MEDS ORDERED: MORPHINE 2 MG/ML 1ML VIAL IV PRN (14:05)
[2023-12-21] MEDS ORDERED: MORPHINE 10MG/0.5ML ORAL CONCENTRATE SOLUTION U/D SL PRN (14:05)
[2023-12-21] MEDS ORDERED: ATROPINE SULFATE 1% OPHTH SOLN 2ML BTL SL PRN (14:05)
[2023-12-21] MEDS ORDERED: HYOSCYAMINE SULFATE 0.125 MG SUBL TABLET PO PRN (14:05)
[2023-12-21] MEDS: MORPHINE 2 MG/ML 1ML VIAL IV ONE (14:51)
[2023-12-23] MEDS ORDERED: HYOS125TA PO (12:43)
[2023-12-23] MEDS ORDERED: MORP2INJ4 IV (12:43)
[2023-12-23] MEDS ORDERED: ATRO2DRO4 SL (12:43)
[2023-12-23] MEDS ORDERED: TRAN1DIS4 TOP (12:43)
[2023-12-23] MEDS ORDERED: ATIV2INJ5 IV (12:43)
[2023-12-23] MEDS ORDERED: MORP1SOL5 PO (13:18)
[2023-12-23] MEDS ORDERED: ATIV1TAB10 PO (13:18)
== END 2023-12-23 13:54 | DRG 682 ==
LOC: EDBD 13:52 → M ED 13:52 → M ED INP 17:56 → ENRESERV 22:29 → M PCU 23:19
PROVIDERS: ADMIT General Practice; ATTEND General Practice
DX: N17.9 Acute kidney failure, unspecified (principal); G93.41 Metabolic encephalopathy; R65.10 Systemic inflammatory response syndrome (SIRS) of non-infectious origin without acute organ dysfunction; E87.3 Alkalosis; E83.41 Hypermagnesemia; E87.5 Hyperkalemia; R41.82 Altered mental status, unspecified; N18.30 Chronic kidney disease, stage 3 unspecified; F03.90 Unspecified dementia, unspecified severity, without behavioral disturbance, psychotic disturbance, mood disturbance, and anxiety; E11.22 Type 2 diabetes mellitus with diabetic chronic kidney disease; I12.9 Hypertensive chronic kidney disease with stage 1 through stage 4 chronic kidney disease, or unspecified chronic kidney disease; E78.5 Hyperlipidemia, unspecified; F41.9 Anxiety disorder, unspecified; Z51.5 Encounter for palliative care; Z66 Do not resuscitate; F32.A Depression, unspecified; E03.9 Hypothyroidism, unspecified; I25.10 Atherosclerotic heart disease of native coronary artery without angina pectoris; M10.9 Gout, unspecified; I48.91 Unspecified atrial fibrillation; E87.8 Other disorders of electrolyte and fluid balance, not elsewhere classified; D50.9 Iron deficiency anemia, unspecified; R62.7 Adult failure to thrive; E86.0 Dehydration; R13.10 Dysphagia, unspecified; Z79.890 Hormone replacement therapy; Z79.899 Other long term (current) drug therapy; Z85.46 Personal history of malignant neoplasm of prostate; Z92.3 Personal history of irradiation

== ENCOUNTER → 2023-12-18 | Outpatient (REF) ==
[2023-12-18 09:54] LABS: HEMATOCRIT 44.6 % (42.0-52.0); HEMOGLOBIN 14.2 g/dl (13.5-17.5); MEAN CORPUSCULAR HEMOGLOBIN 32.5 pg (27.0-33.0); MEAN CORPUSCULAR HGB CONC 31.8 g/dl (32.0-36.5); MEAN CORPUSCULAR VOLUME 102.1 fl (80.0-96.0); PLATELET COUNT, AUTOMATED 213 10^3/uL (150-450); RED BLOOD COUNT 4.37 10^6/uL (4.30-6.10); WHITE BLOOD COUNT 13.5 10^3/uL (4.0-10.0)
[2023-12-18 10:15] LABS: CALCIUM LEVEL 9.6 MG/DL (8.3-10.6); CREATININE FOR GFR 1.82 MG/DL (0.70-1.30); GLOMERULAR FILTRATION RATE 37.6 (>35); POTASSIUM SERUM 5.4 MMOL/L (3.5-5.1)
== END ==
PROVIDERS: ATTEND Physician Assistant
DX: I10 Essential (primary) hypertension (principal)